=== PATIENT | male | born 1945 | race Caucasian/White ===

== ENCOUNTER 2017-03-30 19:39 | Inpatient (IN) ==
[2017-03-30] MEDS ORDERED: SODIUM CHLORIDE 0.9% 500 ML IV STA (20:40)
[2017-03-30] MEDS ORDERED: PIPERACILLIN/TAZOBACTAM 3,375 MG in SODIUM CHLORIDE 0.9% 100 ML IV STA (20:40)
[2017-03-30] MEDS ORDERED: ALBUTEROL/IPRATROPIUM 3 ML NEB RESP TX STA (20:40)
--- NOTE | 2017-03-30 20:44 | Emergency Department Note ---
Noemy Sauceda Rolonda, am scribing for, and in the presence of, Kendrick Freeman MD 20:43. Pete Sauceda Charles R, MD, personally performed the services described in this documentation, ascribed by Magui Salguero in my presence, and it is both accurate and complete . Arrival - Arrival Chief Complaint: Fever Stated Complaint: throwing up,fever,heart feeling funny ED Nursing Triage Note: C/O N/V/D/generalized abd pain/generalized weakness. Onset unknown- pt cannot narrow down a timeline of onset. Mode of Arrival: Wheelchair Limitations: No Limitations Source: Patient, Old Records Reviewed, RN Notes Reviewed Time Seen by Provider: 03/30/17 19:56 - History of Present Illness HPI Narrative: Pt is a 71 y/o ill-appearing male who presents to the ED with c/o fever with an onset of weeks. Pt has a PMHx of HTN and CVA. Pt states that he has been having fever for weeks which has progressively worsened. He states that he has been having frequency urination every 0030 minutes. He confirms associated sxs of N/V / as well. Pt states that he also has numbness in his feet and tingling in his collar bone. He is f/u by Dr. Aldrich. No other complaint/pain in ED. Onset (ago): week(s) Consistency: constant Severity: moderate, severe Severity scale (1-10): 5 Allergies/Adverse Reactions: Allergies Allergy/AdvReac Type Severity Reaction Status Date / Time No Known Allergies Allergy Verified 03/30/17 19:41 Home Medications: Home Medications Medication Instructions Recorded Confirmed Type Unable To Obtain [Unable to Obtain] 03/30/17 03/30/17 History Review of System - Review of System 12 point system: reviewed and no additional remarkable complaints except as stated - Review of System Constitutional: Present: fever, weakness Eyes: Absent: discharge Head/Ears/Nose/Throat: Absent: earache Respiratory: Absent: cough Cardiovascular: Absent: chest pain Gastrointestinal: Present: nausea, vomiting Genitourinary male: Present: frequency Musculoskeletal: Absent: arm pain, back pain Skin: Absent: rash Neurological: Present: numbness (in feet and colar bone) Psychiatric: Absent: anxiety Endocrine: Absent: cold intolerance Hematological/Lymphatic: Absent: easy bleeding Allergic/Immunologic: Absent: facial swelling Medical,Surgical,& Family Hx - Medical History Cardio: History of: Hypertension Endocrine: History of: Dyslipidemia - Social History Smoking Status: Never smoker Frequency of Alcohol Use: None Type of Drug Use: None Exam Vital Signs: Vital Signs Temperature 102 F H 03/30/17 19:41 Pulse Rate 98 H 03/30/17 21:08 Respiratory Rate 20 03/30/17 21:08 Blood Pressure 143/101 03/30/17 19:41 O2 Sat by Pulse Oximetry 99 03/30/17 21:08 - General General appearance: alert, in no apparent distress, other (ill-appearing) - Head Head exam: Present: atraumatic, normocephalic - Eye Eye exam: Present: PERRL, EOMI - ENT ENT exam: Present: mucous membranes moist. Absent: mucous membranes dry - Neck Neck exam: Present: full ROM. Absent: tenderness - Chest Chest inspection: Present: symmetric chest wall rise. Absent: tenderness - Respiratory Respiratory exam: Present: rales, rhonchi - Cardiovascular Cardiovascular exam: Present: normal rhythm, tachycardia - Abdominal Exam Abdominal exam: Present: soft, normal bowel sounds, other (suprapubic fullness) - Extremities Exam Extremities exam: Present: full ROM. Absent: tenderness - Back Exam Back exam: Present: full ROM. Absent: tenderness - Neurological Exam Neurological exam: Present: alert, oriented X3, CN II-XII intact - Psychiatric Psychiatric exam: Present: normal affect, normal mood - Skin Skin exam: Present: warm, dry, intact, normal color. Absent: rash Course - Consultations Consultation #1: Hospitalist will admit patient Time: 21:57 Results - Labs CBC & BMP: 03/30/17 20:53 03/30/17 20:53 Lab Results: I have reviewed the patients labs Labs: Laboratory Tests 03/30/17 20:53 WBC 25.1 H RBC 5.04 Hgb 15.9 Hct 46.1 Neut % (Auto) 81.4 H Lymph % (Auto) 10.3 L Neut # (Auto) 20.4 H Bledsoe # (Auto) 1.9 H Microbiology 03/30/17 20:53 Throat Group A Streptococcus Rapid Screen - Final Negative for Grp A Strep Ag 03/30/17 20:53 Nasal Aspirate Influenza Types A,B Antigen (SALOME) - Final Negative for Influenza A Ag Negative for Influenza B Ag Laboratory Tests 03/30/17 03/30/17 20:53 21:08 Sodium 135 L Potassium 3.9 Chloride 101 Carbon Dioxide 25 BUN 16 GFR Calculation 122 Glucose 135 H Calculated Osmolality 272.1 L Calcium 8.4 L AST 13 C-Reactive Protein 9.88 H Albumin 3.3 L Globulin 4.1 H Albumin/Globulin Ratio 0.8 L Amylase 16 L Urine pH 5.0 Ur Specific Magazine 1.028 Urine Protein 100 Urine Glucose (UA) Negative Urine Ketones Negative Urine Blood Moderate Urine Nitrate Negative Urine Bilirubin Negative Urine Urobilinogen < 2.0 H Urine Leukocytes Large H Urine RBC 61 Urine WBC 391 Urine WBC Clumps Many Urine Bacteria Few Urine Mucus Many Ur Culture Indicated? Results to follow Critical Care Time Critical Care Time: Yes Total Critical Care Time: 60 Disposition Clinical Impression: Sepsis, UTI (urinary tract infection), Leukocytosis, Nausea vomiting and diarrhea, Generalized weakness, Near syncope Case discussed with: patient, patient's family Disposition: Still a Patient Condition: Guarded Time of Disposition: 21:57
[2017-03-30] MEDS ORDERED: PIPERACILLIN/TAZOBACTAM 3,375 MG VIAL IV ONE (20:49)
[2017-03-30 21:17] LABS: Basophils # 0.1 10*3/uL (0.0-0.2); Basophils % 0.3 % (0.0-0.8); Eosinophils % 0.1 % (0.00-10.9); Hematocrit 46.1 VOL% (42.0-52.0); Hemoglobin 15.9 GM/DL (14.0-18.0); Immature Granulocytes % 0.5 %; Immature Granulocytes Absolute 0.12 #; Lymphocytes # 2.6 10*3/uL (1.4-4.0); Lymphocytes % 10.3 % (21.2-54.2); Mean Corpuscular HGB Conc 34.5 GM/DL (32-36); Mean Corpuscular Hemoglobin 32 PG (27-34); Mean Corpuscular Volume 91.5 FL (87-102); Mean Platelet Volume 11.4 FL (9.6-12.0); Monocytes # 1.9 10*3/uL (0.11-0.8); Monocytes % 7.4 % (1.7-12.7); Neutrophils # 20.4 10*3/uL (1.4-7.4); Neutrophils % 81.4 % (38.7-73.9); Platelet Count 217 T/CUMM (130-400); Red Blood Count 5.04 MC/CUMM (3.8-5.5); Red Cell Distribution Width 12.2 % (9.3-17.3); White Blood Count 25.1 T/CUMM (4-12)
[2017-03-30 21:43] LABS: Apearance,Urine CLOUDY (Clear); Bacteria,Urine Few /HPF (Few); Bilirubin,Urine Negative (Negative); Blood, Urine Moderate mg/dL (Negative); Glucose,Urine (UA) Negative (Negative); Ketones,Urine Negative (Negative); Mucus,Urine Many /LPF (Occasional); Nitrite,Urine Negative (Negative); Protein,Urine 100 MG/DL; RBC,Urine 61 /HPF (0-4); Urine Color Amber (Yellow); Urine Specific Gravity 1.028 (1.001-1.035); Urine Urobilinogen < 2.0 EU/DL (0.2-1.0); WBC,Urine 391 /HPF (0-6)
[2017-03-30 21:48] LABS: Lactic Acid 1.6 MMOL/L (0.4-2.0)
[2017-03-30 21:49] LABS: Alanine Aminotransferase 19 U/L (16-61); Albumin 3.3 G/DL (3.4-5.0); Alkaline Phosphatase 69 U/L (45-117); Amylase 16 U/L (25-115); Aspartate Amino Transferase 13 U/L (0-37); Blood Urea Nitrogen 16 MG/DL (7-18); Calcium 8.4 MG/DL (8.5-10.1); Glucose 135 MG/DL (74-106); Osmolality,Calculated 272.1 MOS/KG (273-304); Potassium 3.9 MMOL/L (3.5-5.1); Sodium 135 MMOL/L (136-145); Total Protein 7.4 G/DL (6.4-8.3); Troponin I Only < 0.015 NG/ML (0.00-0.045)
[2017-03-30] MEDS ORDERED: ONDANSETRON 4 MG/2 ML VIAL IV STA (21:55)
[2017-03-30] MEDS ORDERED: ONDANSETRON 4 MG/2 ML VIAL ONE (21:58)
[2017-03-30] MEDS ORDERED: LEVOFLOXACIN INJ 750 MG in PREMIX 1 EACH IV STA (21:58)
--- NOTE | 2017-03-30 22:49 | Hospitalist History & Physical ---
Assessment and Plan (1) Urinary retention Status: Acute Current Visit: Yes (2) Sepsis Status: Acute Current Visit: Yes (3) UTI (urinary tract infection) Status: Acute Current Visit: Yes (4) Leukocytosis Status: Acute Current Visit: Yes (5) Nausea vomiting and diarrhea Status: Acute Assessment and plan: Our plan for this patient will be admitting him to our service. Start him on IV antibiotics. Will follow sepsis protocol and use Zosyn. We will culture his urine and blood. Will continue home meds once they are confirmed. Will get EKG in the morning. He is reports a history of A. fib. Will do a bladder scan on him for for post void residual and if greater than 100 and out cath as needed. Go ahead and start him on Flomax Current Visit: Yes History of Present Illness Chief complaint: Fever feeling poorly History of present illness: Mr. Ridley is a 71 year old male with multiple medical problems including stroke , TIA, and A. fib who was in his normal state of health until the past 2-3 weeks. During this time he said he just felt awful. He is progressively gotten weaker during this timeframe. He felt like tonight he was going to so he came to the hospital for further evaluation. Patient was found to have a urinary tract infection and met sepsis protocol. He reports to me that for the past 2-3 weeks he has had a problem with urination. I was consulted for admission. Home Medications Medication Instructions Recorded Confirmed Type Unable To Obtain [Unable to Obtain] 03/30/17 03/30/17 History Allergies Allergy/AdvReac Type Severity Reaction Status Date / Time No Known Allergies Allergy Verified 03/30/17 19:41 Medical,Surgical,& Family Hx - Medical History Cardio: History of: Cardiac Dysrhythmia, Hypertension Endocrine: History of: Dyslipidemia - Surgical History HEENT Surgeries: Surgical HX of: Tonsilectomy & Adenoidectomy Abdominal Surgeries: Surgical HX of: Hernia Repair - Family History Family History: Reports;: Family Cancer, Family Diabetes - Social History Smoking Status: Never smoker Frequency of Alcohol Use: None Type of Drug Use: None 12 point system: reviewed and no additional remarkable complaints except as stated Exam - Constitutional Vitals: Period Temp Pulse Resp BP Sys/Antony Pulse Ox Last 24 Hr 102 F 95-111 20-20 143/101 96-99 - General General appearance: alert, in no apparent distress - Head Head exam: Present: atraumatic, normocephalic - Eye Eye exam: Present: PERRL, EOMI - ENT ENT exam: Present: mucous membranes moist. - Neck Neck exam: Present: full ROM. - Chest Chest inspection: Present: symmetric chest wall rise. - Respiratory Respiratory exam: Present: Coarse breath sounds bilaterally - Cardiovascular Cardiovascular exam: Present: normal rhythm, tachycardia - Abdominal Exam Abdominal exam: Present: soft, normal bowel sounds, fullness noted in the suprapubic area - Extremities Exam Extremities exam: Present: full ROM. Absent: tenderness - Back Exam Back exam: Present: full ROM. Absent: tenderness - Neurological Exam Neurological exam: Present: alert, oriented X3, CN II-XII intact - Psychiatric Psychiatric exam: Present: normal affect, normal mood - Skin Skin exam: Present: warm, dry, intact, normal color. Absent: rash Results - Labs CBC & BMP: 03/30/17 20:53 03/30/17 20:53
[2017-03-30] MEDS ORDERED: LEVOFLOXACIN INJ 150 ML IV ONE (22:58)
[2017-03-30 23:34] LABS: Band Neutrophils 3 % (0-10); Lymphocytes 12 % (20-55); Segmented Neutrophils 78 % (50-85)
[2017-03-30 23:35] LABS: Platelet Estimate Normal; Total Cells Counted 100
[2017-03-31] MEDS: ONDANSETRON 4 MG/2 ML VIAL IV PRN ×2 (01:20→09:20)
[2017-03-31] MEDS: TAMSULOSIN 0.4 MG CAPSULE PO SCH ×2 (01:20→21:38)
[2017-03-31] MEDS: ACETAMINOPHEN 325 MG TABLET PO PRN ×2 (03:06→14:30)
[2017-03-31] MEDS: PIPERACILLIN/TAZOBACTAM 3,375 MG in SODIUM CHLORIDE 0.9% 100 ML IV SCH ×3 (05:10→22:40)
[2017-03-31 06:16] LABS: Basophils # 0.1 10*3/uL (0.0-0.2); Basophils % 0.3 % (0.0-0.8); Eosinophils % 0.1 % (0.00-10.9); Hematocrit 44.8 VOL% (42.0-52.0); Hemoglobin 14.9 GM/DL (14.0-18.0); Immature Granulocytes % 0.5 %; Immature Granulocytes Absolute 0.12 #; Lymphocytes # 3.1 10*3/uL (1.4-4.0); Lymphocytes % 14.4 % (21.2-54.2); Mean Corpuscular HGB Conc 33.3 GM/DL (32-36); Mean Corpuscular Hemoglobin 31 PG (27-34); Mean Corpuscular Volume 94.1 FL (87-102); Mean Platelet Volume 12.3 FL (9.6-12.0); Monocytes # 1.3 10*3/uL (0.11-0.8); Monocytes % 5.9 % (1.7-12.7); Neutrophils # 17.2 10*3/uL (1.4-7.4); Neutrophils % 78.8 % (38.7-73.9); Platelet Count 187 T/CUMM (130-400); Red Blood Count 4.76 MC/CUMM (3.8-5.5); Red Cell Distribution Width 12.4 % (9.3-17.3); White Blood Count 21.9 T/CUMM (4-12)
[2017-03-31 06:39] LABS: Band Neutrophils 2 % (0-10); Lymphocytes 12 % (20-55); Segmented Neutrophils 78 % (50-85); Total Cells Counted 100
[2017-03-31 06:40] LABS: Giant Platelets Few; Hypochromasia Slight; Platelet Estimate Normal
--- NOTE | 2017-03-31 06:40 | XRay Report ---
XR chest 2V Indication: Shortness of breath, fever Comparison: None available Findings: The heart and mediastinum are normal in size and configuration. The pulmonary vascularity is normal in caliber. Lung volumes are increased with prominent bronchial markings. No lung infiltrates, effusions, pneumothorax or other abnormality is demonstrated. Impression: Chronic lung changes. No acute process. PROCEDURE INTERPRETED AT [facility] DEPARTMENT OF RADIOLOGY Final Report Signed by: Dr. Rey De Luna
--- NOTE | 2017-03-31 06:41 | XRay Report ---
XR abdomen 2V Indication: Nausea vomiting and diarrhea Comparison: None available Findings: No free fluid or free air seen. The bowel gas pattern appears within normal limits. No abnormal calcifications are present. No other abnormality is identified. Impression: No evidence of abnormality demonstrated PROCEDURE INTERPRETED AT [facility] DEPARTMENT OF RADIOLOGY Final Report Signed by: Dr. Rey De Luna
[2017-03-31 07:02] LABS: Albumin 3.2 G/DL (3.4-5.0); Bilirubin,Total 1.3 MG/DL (0.2-1.0); Calcium 8.3 MG/DL (8.5-10.1); Osmolality,Calculated 275.8 MOS/KG (273-304); Total Protein 6.5 G/DL (6.4-8.3)
--- NOTE | 2017-03-31 07:31 | Order Completion Report ---
See report scanned to EMR
[2017-03-31] MEDS ORDERED: ENOXAPARIN 40 MG/0.4 ML SYRINGE SUBCUT SCH (09:00)
--- NOTE | 2017-03-31 09:09 | Hospitalist Progress Note ---
Assessment and Plan (1) History of atrial fibrillation Status: Acute Assessment and plan: He is presently in normal sinus rhythm. I will start him on anticoagulation with rivaroxaban. Current Visit: Yes (2) History of CVA (cerebrovascular accident) Status: Acute Current Visit: Yes (3) Sepsis Status: Acute Assessment and plan: He appears much improved this morning. He is presently being treated with intravenous Zosyn. Current Visit: Yes Qualifiers: Sepsis type: sepsis due to unspecified organism Qualified Code(s): A41.9 - Sepsis, unspecified organism (4) UTI (urinary tract infection) Status: Acute Assessment and plan: See above. Current Visit: Yes Hospitalist: Subjective Interval history: Patient feels much better today. He is not experiencing any nausea or vomiting. He was begun last night on intravenous Zosyn for urinary tract infection and sepsis. He notes that he has a previous history of multiple strokes and TIAs. He self discontinued warfarin and apixaban which had previously been prescribed. He requests that a repeat CT scan of his head and carotid Doppler examination be performed. I will restart him on anticoagulation with rivaroxaban. Exam - Constitutional Vitals: Period Temp Pulse Resp BP Sys/Antony Pulse Ox Last 24 Hr 98.0 F-102 F 80-121 16-20 102-143/64-101 91-100 General appearance: no acute distress - Head Head exam: Present: normal inspection - Neck Neck exam: Present: normal inspection - Respiratory Respiratory exam: Present: clear to auscultation bilaterally - Cardiovascular Cardiovascular exam: Present: regular rate and rhythm - GI/Abdominal GI/Abdominal exam: Present: normal bowel sounds, soft, other (Nontender with no palpable masses or hepatosplenomegaly.) - Extremities Exam Extremities exam: Present: normal inspection - Neurological Exam Neurological exam: Present: alert, oriented X3 - Skin Skin exam: Present: normal color, warm, intact Results - Labs CBC & BMP: 03/31/17 05:25 03/31/17 05:25
[2017-03-31] MEDS: PANTOPRAZOLE 40 MG TABLET PO SCH (09:55)
--- NOTE | 2017-03-31 10:51 | CT Report ---
CT brain Indication: Transient ischemic attack, sepsis Comparison: None available Technique: Axial CT imaging of the brain is performed without contrast with 3 mm increments. Findings: No evidence of hemorrhage, mass mass effect midline shift or acute infarct seen. The brain parenchyma attenuation and differentiation appears within normal limits. The ventricles and cisterns are normal in caliber. No cranial or skull base abnormality is identified. Impression: No evidence of abnormality demonstrated. This CT exam was performed using one or more the following dose reduction techniques: Automated exposure control, adjustment of the MA and/or KV according to patient size, or use of iterative reconstruction technique. PROCEDURE INTERPRETED AT [facility] DEPARTMENT OF RADIOLOGY Final Report Signed by: Dr. Rey De Luna
--- NOTE | 2017-03-31 14:23 | Ultrasound Report ---
Exam:US carotid duplex BI Date:03/31/2017 9:03 AM Indication: TIA Color Doppler, wave form analysis, and grayscale analysis of the cervical carotid arteries was performed. There is minimal smooth plaque in the distal right common carotid artery. Waveform analysis shows proper directional flow of the cervical carotid arteries. There is antegrade flow in either vertebral artery. The distal right ICA measures 5.5 mm diameter; the left measures 5.2 mm diameter. Peak systolic velocities are as follows: Right CCA 112 cm/s Right ICA 108 cm/s Right ECA 85 cm/s Right vertebral 55 cm/s Right IC/CC ratio 1.0 Left CCA 122 cm/s Left ICA 80 cm/s Left ECA 105 cm/s Left vertebral 36 cm/s Left IC/CC ratio 0.7 There is 0-49% diameter reduction narrowing of either internal carotid artery using indirect NASCET criteria. Ultrasound images were captured and archived. Impression: No hemodynamically significant internal carotid artery stenosis PROCEDURE INTERPRETED AT [facility] DEPARTMENT OF RADIOLOGY Final Report Signed by: Dr. Carolina Peralta
[2017-03-31] MEDS: ASPIRIN CHEW 81 MG TABLET PO SCH ×2 (15:10→21:38)
[2017-03-31] MEDS: amLODIPine 5 MG TABLET PO SCH (15:10)
[2017-03-31] MEDS: RIVAROXABAN 20 MG TABLET PO SCH (16:21)
[2017-03-31] MEDS ORDERED: KETOROLAC 30 MG/1 ML VIAL IV ONE (20:26)
[2017-03-31] MEDS: TEMAZEPAM 15 MG CAPSULE PO PRN (21:38)
[2017-04-01 03:32] LABS: Basophils # 0.1 10*3/uL (0.0-0.2); Basophils % 0.3 % (0.0-0.8); Eosinophils # 0.2 10*3/uL (0.0-0.87); Eosinophils % 1.4 % (0.00-10.9); Hematocrit 40.8 VOL% (42.0-52.0); Hemoglobin 13.8 GM/DL (14.0-18.0); Immature Granulocytes % 0.7 %; Immature Granulocytes Absolute 0.12 #; Lymphocytes # 3.1 10*3/uL (1.4-4.0); Lymphocytes % 18.3 % (21.2-54.2); Mean Corpuscular HGB Conc 33.8 GM/DL (32-36); Mean Corpuscular Hemoglobin 32 PG (27-34); Mean Platelet Volume 12.3 FL (9.6-12.0); Monocytes # 1.3 10*3/uL (0.11-0.8); Monocytes % 7.9 % (1.7-12.7); Neutrophils % 71.4 % (38.7-73.9); Platelet Count 161 T/CUMM (130-400); Red Blood Count 4.34 MC/CUMM (3.8-5.5); Red Cell Distribution Width 12.4 % (9.3-17.3); White Blood Count 16.8 T/CUMM (4-12)
[2017-04-01 04:20] LABS: Calcium 7.9 MG/DL (8.5-10.1); Osmolality,Calculated 280.5 MOS/KG (273-304); Potassium 3.6 MMOL/L (3.5-5.1)
[2017-04-01] MEDS: PIPERACILLIN/TAZOBACTAM 3,375 MG in SODIUM CHLORIDE 0.9% 100 ML IV SCH ×3 (05:42→22:41)
[2017-04-01] MEDS: ASPIRIN CHEW 81 MG TABLET PO SCH ×2 (08:53→11:00)
[2017-04-01] MEDS: PANTOPRAZOLE 40 MG TABLET PO SCH (08:53)
[2017-04-01] MEDS: amLODIPine 5 MG TABLET PO SCH (08:53)
--- NOTE | 2017-04-01 09:12 | Hospitalist Progress Note ---
Assessment and Plan (1) History of atrial fibrillation Status: Acute Assessment and plan: He is presently in normal sinus rhythm. He was begun yesterday on rivaroxaban. Current Visit: Yes (2) History of CVA (cerebrovascular accident) Status: Acute Current Visit: Yes (3) Sepsis Status: Acute Assessment and plan: He appears much improved this morning. He is presently being treated with intravenous Zosyn. Today is day 2 of intravenous antibiotics. Current Visit: Yes Qualifiers: Sepsis type: sepsis due to unspecified organism Qualified Code(s): A41.9 - Sepsis, unspecified organism (4) UTI (urinary tract infection) Status: Acute Assessment and plan: See above. He is asymptomatic with no dysuria or other symptoms. Current Visit: Yes Qualifiers: Urinary tract infection type: site unspecified Hematuria presence: without hematuria Qualified Code(s): N39.0 - Urinary tract infection, site not specified Hospitalist: Subjective Interval history: Patient feels much better today. Today is day 2 of intravenous Zosyn. I discussed with him that if he is doing well tomorrow, it might be possible to allow him to go home on oral antibiotics. Exam - Constitutional Vitals: Period Temp Pulse Resp BP Sys/Antony Pulse Ox Last 24 Hr 98 F-99.4 F 65-99 16-20 99-116/58-70 95-97 General appearance: no acute distress - Head Head exam: Present: normal inspection - Neck Neck exam: Present: normal inspection - Respiratory Respiratory exam: Present: clear to auscultation bilaterally - Cardiovascular Cardiovascular exam: Present: regular rate and rhythm - GI/Abdominal GI/Abdominal exam: Present: normal bowel sounds, soft, other (Nontender with no palpable masses or hepatosplenomegaly.) - Extremities Exam Extremities exam: Present: normal inspection - Skin Skin exam: Present: normal color, warm, intact Results - Labs CBC & BMP: 04/01/17 02:32 04/01/17 02:32 Specialty Discharge - Follow Up or Referrals Follow up with: Rupal Ag MD [Physician] - (follow up on discharge )
[2017-04-01] MEDS: RIVAROXABAN 20 MG TABLET PO SCH (16:48)
[2017-04-01] MEDS ORDERED: MAGNESIUM HYDROXIDE SUSP 30 ML UDCUP PO PRN (17:28)
[2017-04-01] MEDS ORDERED: MAGNESIUM HYDROXIDE SUSP 30 ML UDCUP PO ONE (17:28)
[2017-04-01] MEDS: TAMSULOSIN 0.4 MG CAPSULE PO SCH (21:42)
[2017-04-01] MEDS: TEMAZEPAM 15 MG CAPSULE PO PRN (21:42)
[2017-04-02] MEDS: PIPERACILLIN/TAZOBACTAM 3,375 MG in SODIUM CHLORIDE 0.9% 100 ML IV SCH (06:04)
--- NOTE | 2017-04-02 08:00 | Discharge Summary ---
Hospital Course - Hospital Course Hospital Course: Mr. Ridley is a 71 year old male with multiple medical problems including stroke , TIA, and A. fib who was in his normal state of health until the past 2-3 weeks. During this time he said he just felt awful. He is progressively gotten weaker during this timeframe. He felt like tonight he was going to so he came to the hospital for further evaluation. Patient was found to have a urinary tract infection and met sepsis protocol. He reports to me that for the past 2-3 weeks he has had a problem with urination. Mr. Ridley was treated with intravenous Zosyn. He did well thereafter by the day of discharge was comfortable with no complaints. Laboratory testing at the time of discharge demonstrated the following: Hematocrit 40.8, hemoglobin 13.8, WBC 16,800 (decreased from 25,100 on admission), BUN 22, creatinine 1.0, and potassium 3.6. Diagnosis - Discharge Diagnosis (1) History of atrial fibrillation Status: Chronic (2) History of CVA (cerebrovascular accident) Status: Chronic (3) Sepsis Status: Acute (4) UTI (urinary tract infection) Status: Acute Specialty Discharge - Follow Up or Referrals Follow up with: Rupal Ag MD [Physician] - (follow up on discharge ) Discharge Plan - Discharge Data Disposition: Disch To Home/Self Care Condition at Discharge: Stable Discharge Diet: advance to your usual diet Activity: resume usual activities as tolerated - Discharge Medications New Tamsulosin [Flomax] 0.4 mg PO BEDTIME #30 capsule cephALEXin [Keflex] 500 mg PO Q12HR #8 capsule Continue amLODIPine [Norvasc] 5 mg PO DAILY Aspirin 81 mg PO BID - Follow Up or Referral Follow Up: Rupal Ag MD [Physician] - (follow up on discharge ) - Forms/Instructions Exam - Constitutional Vitals: Period Temp Pulse Resp BP Sys/Antony Pulse Ox Last 24 Hr 97 F-98.4 F 84-98 16-22 92-118/57-79 92-95 Discharge Results Procedures and tests throughout hospitalization: Pending Orders 03/30/17 Urine Culture Routine 03/30/17 20:53 Blood Culture Stat Labs on day of discharge: Preliminary micro results at discharge 03/30/17 Unknown Urine Culture - Preliminary Urine,Catheterized Gram Negative Rods 03/30/17 20:53 Blood Culture - Preliminary Blood No growth at 1 day 03/30/17 20:53 Blood Culture - Preliminary Blood No growth at 1 day DS: Provider Date of admission: 03/30/17 22:38 Primary care physician: Jad Reyes MD Attending physician on admission: Gareth Sapp MD Discharging clinician: Nathan Childers
[2017-04-02 08:02] VITALS: BP 96/61
[2017-04-02] MEDS: ASPIRIN CHEW 81 MG TABLET PO SCH (09:27)
[2017-04-02] MEDS: PANTOPRAZOLE 40 MG TABLET PO SCH (09:27)
== END 2017-04-02 11:40 | disposition home or self-care (01) | DRG 872 ==
LOC: N.ED 19:39 → SUATTDRO 22:38 → N.EDINP 22:38 → N.5E 23:09
PROVIDERS: ADMIT Internal Medicine

== ENCOUNTER 2020-04-08 11:40 | Inpatient (IN) ==
[2020-04-08] MEDS ORDERED: DEXAMETHASONE 4 MG/1 ML VIAL IV STA (12:01)
[2020-04-08] MEDS ORDERED: ALBUTEROL 2.5 MG/3 ML NEB RESP TX STA (12:02)
[2020-04-08] MEDS ORDERED: LORazepam 2 MG/1 ML VIAL IV STA (12:08)
[2020-04-08] MEDS ORDERED: SODIUM CHLORIDE 0.9% 1,000 ML IV STA (12:11)
[2020-04-08 12:12] LABS: Basophils % 0.3 % (0.0-0.8); Eosinophils % 0.1 % (0.00-10.9); Hematocrit 49.7 VOL% (42.0-52.0); Hemoglobin 16.9 GM/DL (14.0-18.0); Immature Granulocytes % 0.6 %; Immature Granulocytes Absolute 0.05 #; Lymphocytes % 12.4 % (21.2-54.2); Mean Corpuscular Volume 92.7 FL (87-102); Monocytes % 6.4 % (1.7-12.7); Neutrophils % 80.2 % (38.7-73.9); Platelet Count 206 T/CUMM (130-400); Red Blood Count 5.36 MC/CUMM (3.8-5.5); Red Cell Distribution Width 12.2 % (9.3-17.3); White Blood Count 7.9 T/CUMM (4-12)
[2020-04-08 12:40] LABS: Band Neutrophils 3 % (0-10); Eosinophils 1 % (0-10); Lymphocytes 13 % (20-55); Nucleated Red Blood Cells 1 (0-5); Platelet Estimate Normal; Segmented Neutrophils 78 % (50-85); Total Cells Counted 100
[2020-04-08 12:41] LABS: Anisocytosis 1+; Smudge Cells Few
[2020-04-08 13:13] LABS: Albumin 3.2 G/DL (3.4-5.0); Bilirubin,Total 0.5 MG/DL (0.2-1.0); Calcium 8.8 MG/DL (8.5-10.1); Osmolality,Calculated 279.7 MOS/KG (273-304); Total Protein 7.6 G/DL (6.4-8.3)
[2020-04-08 13:26] LABS: Ferritin 1201.2 ng/ml (26-388)
[2020-04-08] MEDS ORDERED: PIPERACILLIN/TAZOBACTAM 3,375 MG in SODIUM CHLORIDE 0.9% 100 ML IV STA (14:09)
[2020-04-08] MEDS ORDERED: ONDANSETRON 4 MG/2 ML VIAL IV PRN (15:09)
[2020-04-08] MEDS ORDERED: DEXTROSE 50% 25 GM/50 ML VIAL IV PRN (15:09)
[2020-04-08] MEDS ORDERED: ACETAMINOPHEN 325 MG TABLET PO PRN (15:09)
[2020-04-08] MEDS ORDERED: GLUCAGON 1 MG VIAL IM PRN (15:09)
[2020-04-08] MEDS ORDERED: INFLUENZA VIRUS VACCINE 0.5 ML SYRINGE IM ONE (17:37)
[2020-04-08] MEDS ORDERED: ZINC SULFATE 220 MG CAPSULE PO SCH (21:00)
[2020-04-08] MEDS: ASPIRIN CHEW 81 MG TABLET PO SCH (21:05)
[2020-04-08] MEDS: LATANOPROST 0.005% OPH SOLN 2.5 ML BOTTLE BOTH EYES SCH (21:05)
[2020-04-08] MEDS: TAMSULOSIN 0.4 MG CAPSULE PO SCH (21:05)
[2020-04-08] MEDS: ALBUTEROL INHALER 18 GM INH SCH (21:05)
[2020-04-08] MEDS: cefTRIAXone 1,000 MG in SYRINGE 1 EACH IV SCH (21:06)
[2020-04-08] MEDS: ENOXAPARIN 100 MG/ML SYRINGE SUBCUT SCH (21:06)
[2020-04-09] MEDS: ALBUTEROL INHALER 18 GM INH SCH ×4 (00:15→21:44)
[2020-04-09 03:44] LABS: Basophils % 0.2 % (0.0-0.8); Hematocrit 46.9 VOL% (42.0-52.0); Hemoglobin 15.7 GM/DL (14.0-18.0); Immature Granulocytes % 0.6 %; Immature Granulocytes Absolute 0.03 #; Lymphocytes # 1.2 10*3/uL (1.4-4.0); Lymphocytes % 24.5 % (21.2-54.2); Mean Corpuscular HGB Conc 33.5 GM/DL (32-36); Mean Corpuscular Volume 93.8 FL (87-102); Mean Platelet Volume 11.7 FL (9.6-12.0); Monocytes % 7.5 % (1.7-12.7); Neutrophils % 67.2 % (38.7-73.9); Platelet Count 214 T/CUMM (130-400); Red Cell Distribution Width 11.6 % (9.3-17.3); White Blood Count 4.8 T/CUMM (4-12)
[2020-04-09 04:09] LABS: Calcium 8.7 MG/DL (8.5-10.1); Osmolality,Calculated 281.7 MOS/KG (273-304)
[2020-04-09 04:15] LABS: Burr Cells Slight; Lymphocytes 16 % (20-55); Ovalocytes Slight; Platelet Estimate Adequate; Segmented Neutrophils 79 % (50-85); Total Cells Counted 100
[2020-04-09] MEDS: DEXAMETHASONE 10 MG/1 ML VIAL IV SCH (09:09)
[2020-04-09] MEDS: amLODIPine 5 MG TABLET PO SCH (09:09)
[2020-04-09] MEDS: ASPIRIN CHEW 81 MG TABLET PO SCH ×2 (09:09→21:45)
[2020-04-09] MEDS ORDERED: MELATONIN 3 MG TABLET PO PRN (15:25)
[2020-04-09] MEDS: cefTRIAXone 1,000 MG in SYRINGE 1 EACH IV SCH (21:45)
[2020-04-09] MEDS: TAMSULOSIN 0.4 MG CAPSULE PO SCH (21:45)
[2020-04-09] MEDS: ENOXAPARIN 100 MG/ML SYRINGE SUBCUT SCH (21:46)
[2020-04-09] MEDS: LATANOPROST 0.005% OPH SOLN 2.5 ML BOTTLE BOTH EYES SCH (21:46)
[2020-04-10] MEDS: ALBUTEROL INHALER 18 GM INH SCH ×3 (02:00→13:01)
[2020-04-10 05:46] LABS: Basophils % 0.2 % (0.0-0.8); Hematocrit 43.1 VOL% (42.0-52.0); Hemoglobin 14.5 GM/DL (14.0-18.0); Immature Granulocytes % 0.3 %; Immature Granulocytes Absolute 0.03 #; Lymphocytes # 1.3 10*3/uL (1.4-4.0); Lymphocytes % 14.5 % (21.2-54.2); Mean Corpuscular HGB Conc 33.6 GM/DL (32-36); Mean Corpuscular Volume 94.3 FL (87-102); Monocytes % 7.5 % (1.7-12.7); Neutrophils % 77.5 % (38.7-73.9); Platelet Count 228 T/CUMM (130-400); Red Blood Count 4.57 MC/CUMM (3.8-5.5); Red Cell Distribution Width 11.7 % (9.3-17.3); White Blood Count 8.6 T/CUMM (4-12)
[2020-04-10 06:08] LABS: Calcium 8.8 MG/DL (8.5-10.1); Osmolality,Calculated 287.4 MOS/KG (273-304)
[2020-04-10] MEDS: DEXAMETHASONE 10 MG/1 ML VIAL IV SCH (08:50)
[2020-04-10] MEDS: amLODIPine 5 MG TABLET PO SCH (08:50)
[2020-04-10] MEDS: ASPIRIN CHEW 81 MG TABLET PO SCH (08:50)
[2020-04-10] MEDS ORDERED: SODIUM POLYSTYRENE SULFATE 15 GM/60 ML BOTTLE PO STA (10:59)
[2020-04-10 11:25] VITALS: BP 119/88
[2020-04-10] MEDS ORDERED: chlorproMAZINE INJ 25 MG in SODIUM CHLORIDE 0.9% 100 ML IV PRN (12:35)
== END 2020-04-10 13:40 | disposition home health service (06) | DRG 177 ==
LOC: N.ED 11:40 → N.EDINP 15:09 → N.2E 15:44
PROVIDERS: ADMIT Hospitalist; ATTEND Hospitalist

== ENCOUNTER 2021-06-18 11:06 | Observation (INO) ==
[2021-06-18] MEDS ORDERED: methylPREDNISolone SOD SUC 125 MG/2 ML VIAL IV STA (11:31)
[2021-06-18] MEDS ORDERED: ALBUTEROL NEB SOLN 5 MG/ML 20 ML/BOTTLE ONE (11:35)
[2021-06-18] MEDS ORDERED: ALBUTEROL NEB SOLN 5 MG/ML 20 ML/BOTTLE CONT NEB SCH (12:00)
[2021-06-18 12:45] LABS: Basophils # 0.1 10*3/uL (0.0-0.2); Basophils % 0.4 % (0.0-0.8); Eosinophils # 0.4 10*3/uL (0.0-0.87); Eosinophils % 2.9 % (0.00-10.9); Hematocrit 48.3 VOL% (42.0-52.0); Hemoglobin 15.6 GM/DL (14.0-18.0); Immature Granulocytes % 0.4 %; Immature Granulocytes Absolute 0.05 #; Lymphocytes # 4.5 10*3/uL (1.4-4.0); Lymphocytes % 33.1 % (21.2-54.2); Mean Corpuscular HGB Conc 32.3 GM/DL (32-36); Mean Corpuscular Volume 95.8 FL (87-102); Mean Platelet Volume 11.1 FL (9.6-12.0); Monocytes % 7.1 % (1.7-12.7); Neutrophils % 56.1 % (38.7-73.9); Platelet Count 212 T/CUMM (130-400); Red Blood Count 5.04 MC/CUMM (3.8-5.5); Red Cell Distribution Width 11.9 % (9.3-17.3); White Blood Count 13.6 T/CUMM (4-12)
[2021-06-18 13:04] LABS: Albumin 3.7 G/DL (3.4-5.0); Bilirubin,Total 0.5 MG/DL (0.20-1.00); Calcium 8.6 MG/DL (8.5-10.1); Osmolality,Calculated 289.8 MOS/KG (273-304); Potassium 3.9 MMOL/L (3.5-5.1); Total Protein 6.7 G/DL (6.4-8.2)
[2021-06-18] MEDS ORDERED: ALBUTEROL NEB SOLN 5 MG/ML 20 ML/BOTTLE CONT NEB STA (14:22)
[2021-06-18] MEDS ORDERED: LEVOFLOXACIN INJ 750 MG in PREMIX 1 EACH IV STA (15:30)
[2021-06-18] MEDS ORDERED: ALBUTEROL/IPRATROPIUM 3 ML NEB RESP TX PRN (16:24)
[2021-06-18] MEDS ORDERED: SIMETHICONE CHEW 125 MG TABLET PO PRN (16:24)
[2021-06-18] MEDS ORDERED: ONDANSETRON 4 MG/2 ML VIAL IV PRN (16:24)
[2021-06-18] MEDS ORDERED: DOCUSATE SODIUM 100 MG CAPSULE PO PRN (16:24)
[2021-06-18] MEDS ORDERED: DEXTROSE 50% 25 GM/50 ML VIAL IV PRN (16:24)
[2021-06-18] MEDS ORDERED: ACETAMINOPHEN 325 MG TABLET PO PRN (16:24)
[2021-06-18] MEDS ORDERED: hydrALAZINE 20 MG/1 ML VIAL IV PRN (16:24)
[2021-06-18] MEDS ORDERED: CALCIUM CARBONATE CHEW 500 MG TABLET PO PRN (16:24)
[2021-06-18] MEDS ORDERED: GLUCAGON 1 MG VIAL IM PRN ×2 (16:24)
[2021-06-18] MEDS ORDERED: DEXTROSE 50% 25 GM/50 ML SYRINGE IV PRN (16:35)
[2021-06-18] MEDS: ALBUTEROL/IPRATROPIUM 3 ML NEB RESP TX SCH (18:30)
[2021-06-18] MEDS: INSULIN LISPRO 100 UNIT/ML SUBCUT SCH ×2 (19:06→21:53)
[2021-06-18] MEDS: LEVOFLOXACIN INJ 750 MG/150 ML PREMIX IV SCH (19:06)
[2021-06-18] MEDS ORDERED: INFLUENZA VIRUS VACCINE 0.5 ML SYRINGE IM ONE (19:36)
[2021-06-18] MEDS: PANTOPRAZOLE 40 MG TABLET PO SCH (21:52)
[2021-06-18] MEDS: methylPREDNISolone SOD SUC 40 MG/1 ML VIAL IV SCH (21:53)
[2021-06-18] MEDS: BUDESONIDE/FORMOTEROL 160-4.5 INHALER 6 GM INH SCH (21:53)
[2021-06-19] MEDS: ALBUTEROL/IPRATROPIUM 3 ML NEB RESP TX SCH ×2 (00:01→07:40)
[2021-06-19] MEDS: GABAPENTIN 300 MG CAPSULE PO SCH ×3 (01:04→21:04)
[2021-06-19 05:02] LABS: Basophils % 0.2 % (0.0-0.8); Hematocrit 43.9 VOL% (42.0-52.0); Hemoglobin 13.9 GM/DL (14.0-18.0); Immature Granulocytes % 0.7 %; Immature Granulocytes Absolute 0.08 #; Lymphocytes # 0.9 10*3/uL (1.4-4.0); Lymphocytes % 7.2 % (21.2-54.2); Mean Corpuscular HGB Conc 31.7 GM/DL (32-36); Monocytes % 2.2 % (1.7-12.7); Neutrophils % 89.7 % (38.7-73.9); Platelet Count 222 T/CUMM (130-400); Red Blood Count 4.48 MC/CUMM (3.8-5.5); Red Cell Distribution Width 11.9 % (9.3-17.3); White Blood Count 12.3 T/CUMM (4-12)
[2021-06-19 05:24] LABS: Alanine Aminotransferase 22 U/L (16-61); Albumin 3.4 G/DL (3.4-5.0); Alkaline Phosphatase 61 U/L (45-117); Aspartate Amino Transferase 12 U/L (0-37); Bilirubin,Total < 0.39 MG/DL (0.20-1.00); Blood Urea Nitrogen 21 MG/DL (7-18); Calcium 8.8 MG/DL (8.5-10.1); Carbon Dioxide 25 MMOL/L (21-32); Estimated Glom Filtration Rate 89 ML/MIN; Glucose 240 MG/DL (74-106); Osmolality,Calculated 283.8 MOS/KG (273-304); Potassium 3.9 MMOL/L (3.5-5.1); Sodium 137 MMOL/L (136-145); Total Protein 6.7 G/DL (6.4-8.2)
[2021-06-19] MEDS: methylPREDNISolone SOD SUC 40 MG/1 ML VIAL IV SCH ×3 (06:13→17:10)
[2021-06-19] MEDS: INSULIN LISPRO 100 UNIT/ML SUBCUT SCH ×4 (08:05→21:07)
[2021-06-19] MEDS: PANTOPRAZOLE 40 MG TABLET PO SCH ×2 (08:18→21:04)
[2021-06-19] MEDS: BUDESONIDE/FORMOTEROL 160-4.5 INHALER 6 GM INH SCH ×2 (08:18→21:07)
[2021-06-19] MEDS: MAGNESIUM OXIDE 400 MG TABLET PO SCH (08:18)
[2021-06-19] MEDS: CYANOCOBALAMIN 500 MCG TABLET PO SCH (08:18)
[2021-06-19] MEDS: ASPIRIN CHEW 81 MG TABLET PO SCH ×2 (08:18→21:04)
[2021-06-19] MEDS: amLODIPine 5 MG TABLET PO SCH (08:18)
[2021-06-19] MEDS ORDERED: GABAPENTIN 300 MG CAPSULE PO SCH (09:00)
[2021-06-19] MEDS: [UNRECOGNIZED DRUG - OTHER] PO SCH (09:55)
[2021-06-19] MEDS: BRINZOLAMIDE 1% OPH SUSP 10 ML BOTTLE BOTH EYES SCH ×2 (11:07→21:05)
[2021-06-19] MEDS: IPRATROPIUM 500 MCG/2.5 ML NEB RESP TX SCH ×2 (14:02→21:29)
[2021-06-19] MEDS: LEVALBUTEROL 1.25 MG/3 ML NEB RESP TX SCH ×2 (14:02→21:29)
[2021-06-19] MEDS: LEVOFLOXACIN INJ 750 MG/150 ML PREMIX IV SCH (16:13)
[2021-06-19] MEDS ORDERED: ENOXAPARIN 40 MG/0.4 ML SYRINGE SUBCUT SCH (21:00)
[2021-06-20] MEDS: IPRATROPIUM 500 MCG/2.5 ML NEB RESP TX SCH ×2 (01:00→07:20)
[2021-06-20] MEDS: LEVALBUTEROL 1.25 MG/3 ML NEB RESP TX SCH ×2 (01:00→07:20)
[2021-06-20] MEDS: methylPREDNISolone SOD SUC 40 MG/1 ML VIAL IV SCH ×2 (01:11→09:32)
[2021-06-20] MEDS: MAGNESIUM OXIDE 400 MG TABLET PO SCH (08:27)
[2021-06-20] MEDS: PANTOPRAZOLE 40 MG TABLET PO SCH (08:27)
[2021-06-20] MEDS: amLODIPine 5 MG TABLET PO SCH (08:27)
[2021-06-20] MEDS: BUDESONIDE/FORMOTEROL 160-4.5 INHALER 6 GM INH SCH (08:27)
[2021-06-20] MEDS: ASPIRIN CHEW 81 MG TABLET PO SCH (08:27)
[2021-06-20] MEDS: CYANOCOBALAMIN 500 MCG TABLET PO SCH (08:27)
[2021-06-20] MEDS: GABAPENTIN 300 MG CAPSULE PO SCH (08:27)
[2021-06-20] MEDS: INSULIN LISPRO 100 UNIT/ML SUBCUT SCH ×2 (08:28→12:39)
[2021-06-20] MEDS: BRINZOLAMIDE 1% OPH SUSP 10 ML BOTTLE BOTH EYES SCH (08:29)
[2021-06-20] MEDS: [UNRECOGNIZED DRUG - OTHER] PO SCH (08:29)
[2021-06-20 12:31] VITALS: BP 129/83
== END 2021-06-20 13:09 | disposition home or self-care (01) ==
LOC: N.5E 11:06 → N.ED 11:06 → N.5E 19:12
PROVIDERS: ADMIT Internal Medicine; ATTEND Internal Medicine

== ENCOUNTER 2022-02-13 11:46 | Inpatient (IN) ==
[2022-02-13] MEDS ORDERED: NITROGLYCERIN SL 0.4 MG TABLET SL PRN (12:04)
[2022-02-13] MEDS ORDERED: HEPARIN 5,000 UNIT/1 ML VIAL IV ONE (12:04)
[2022-02-13] MEDS ORDERED: ASPIRIN 325 MG TABLET PO STA (12:04)
[2022-02-13] MEDS ORDERED: TICAGRELOR 90 MG TABLET PO STA (12:04)
[2022-02-13] MEDS ORDERED: ONDANSETRON 4 MG/2 ML VIAL IV STA ×2 (12:04→12:18)
[2022-02-13] MEDS ORDERED: NITROGLYCERIN SL 0.4 MG TABLET SL ONE (12:05)
[2022-02-13] MEDS ORDERED: ASPIRIN CHEW 81 MG TABLET PO ONE (12:05)
[2022-02-13] MEDS ORDERED: HEPARIN 5,000 UNIT/1 ML VIAL ONE (12:06)
[2022-02-13] MEDS ORDERED: TICAGRELOR 90 MG TABLET ONE (12:06)
[2022-02-13] MEDS ORDERED: methylPREDNISolone SOD SUC 125 MG/2 ML VIAL ONE (12:14)
[2022-02-13] MEDS ORDERED: methylPREDNISolone SOD SUC 125 MG/2 ML VIAL IV STA (12:16)
[2022-02-13 12:18] LABS: Basophils # 0.1 10*3/uL (0.0-0.2); Basophils % 0.5 % (0.0-0.8); Eosinophils # 0.2 10*3/uL (0.0-0.87); Eosinophils % 1.7 % (0.00-10.9); Hematocrit 51.2 VOL% (42.0-52.0); Hemoglobin 16.7 GM/DL (14.0-18.0); Immature Granulocytes % 0.3 %; Immature Granulocytes Absolute 0.04 #; Lymphocytes # 3.3 10*3/uL (1.4-4.0); Lymphocytes % 28.1 % (21.2-54.2); Mean Corpuscular HGB Conc 32.6 GM/DL (32-36); Mean Corpuscular Volume 94.5 FL (87-102); Mean Platelet Volume 11.7 FL (9.6-12.0); Monocytes # 0.8 10*3/uL (0.11-0.8); Monocytes % 6.5 % (1.7-12.7); Neutrophils % 62.9 % (38.7-73.9); Platelet Count 193 T/CUMM (130-400); Red Blood Count 5.42 MC/CUMM (3.8-5.5); Red Cell Distribution Width 12.6 % (9.3-17.3); White Blood Count 11.8 T/CUMM (4-12)
[2022-02-13] MEDS ORDERED: diphenhydrAMINE CAP 25 MG CAPSULE PO PRN (12:23)
[2022-02-13] MEDS ORDERED: BISACODYL 5 MG TABLET PO PRN (12:23)
[2022-02-13] MEDS ORDERED: ONDANSETRON 4 MG/2 ML VIAL IV PRN (12:23)
[2022-02-13] MEDS ORDERED: MORPHINE 2 MG/1 ML SYRINGE IV PRN (12:23)
[2022-02-13] MEDS ORDERED: hydrALAZINE 20 MG/1 ML VIAL IV PRN (12:23)
[2022-02-13] MEDS ORDERED: LACTULOSE 20 GM/30 ML UDCUP PO PRN (12:23)
[2022-02-13] MEDS ORDERED: ALUMINUM/MAGNES/SIMETH MAX STR 30 ML UDCUP PO PRN (12:23)
[2022-02-13] MEDS ORDERED: DIAZEPAM 5 MG TABLET PO ONE (12:23)
[2022-02-13] MEDS ORDERED: diphenhydrAMINE CAP 25 MG CAPSULE PO ONE (12:23)
[2022-02-13] MEDS ORDERED: SIMETHICONE CHEW 125 MG TABLET PO PRN (12:23)
[2022-02-13] MEDS ORDERED: CALCIUM CARBONATE CHEW 500 MG TABLET PO PRN (12:23)
[2022-02-13] MEDS ORDERED: ACETAMINOPHEN 325 MG TABLET PO PRN (12:23)
[2022-02-13] MEDS ORDERED: SODIUM CHLORIDE 0.9% 1,000 ML IV SCH (12:30)
[2022-02-13 12:31] LABS: INR 1.1; PT Patient Result 11.9 SECS (10.1-12.1); Partial Thromboplastin Time 25.8 SECS (23.7-32.9)
[2022-02-13] MEDS ORDERED: VERAPAMIL 5 MG/2 ML VIAL ONE (12:37)
[2022-02-13] MEDS ORDERED: NITROGLYCERIN DRIP 50 MG/250 ML BOTTLE IV ONE (12:37)
[2022-02-13 12:39] LABS: Calcium 9.4 MG/DL (8.5-10.1); Potassium 4.3 MMOL/L (3.5-5.1)
[2022-02-13] MEDS ORDERED: HYDROmorphone 1 MG/1 ML SYRINGE ONE (12:41)
[2022-02-13] MEDS ORDERED: MIDAZOLAM 2 MG/2 ML VIAL ONE (12:41)
[2022-02-13] MEDS ORDERED: TIROFIBAN 5,000 MCG/100 ML PREMIX IV ONE (12:52)
[2022-02-13] MEDS ORDERED: TIROFIBAN 5,000 MCG/100 ML PREMIX IV SCH (12:55)
[2022-02-13] MEDS ORDERED: HEPARIN/NACL 0.9% 2 UNITS/ML 2,000 UNIT/1,000 ML BAG IV ONE (13:30)
[2022-02-13] MEDS: BRINZOLAMIDE 1% OPH SUSP 10 ML BOTTLE BOTH EYES SCH (20:59)
[2022-02-13] MEDS: TICAGRELOR 90 MG TABLET PO SCH (20:59)
[2022-02-13] MEDS: GABAPENTIN 300 MG CAPSULE PO SCH (20:59)
[2022-02-13] MEDS: BUDESONIDE/FORMOTEROL 160-4.5 INHALER 6 GM INH SCH (20:59)
[2022-02-13] MEDS: ROSUVASTATIN 20 MG TABLET PO SCH (20:59)
[2022-02-13] MEDS: ZALEPLON 5 MG CAPSULE PO PRN (21:00)
[2022-02-14 04:03] LABS: Basophils % 0.2 % (0.0-0.8); Hematocrit 46.4 VOL% (42.0-52.0); Hemoglobin 14.7 GM/DL (14.0-18.0); Immature Granulocytes % 0.4 %; Immature Granulocytes Absolute 0.06 #; Lymphocytes # 1.7 10*3/uL (1.4-4.0); Lymphocytes % 12.4 % (21.2-54.2); Mean Corpuscular HGB Conc 31.7 GM/DL (32-36); Mean Corpuscular Volume 96.7 FL (87-102); Mean Platelet Volume 11.7 FL (9.6-12.0); Monocytes # 0.7 10*3/uL (0.11-0.8); Monocytes % 5.2 % (1.7-12.7); Neutrophils % 81.8 % (38.7-73.9); Platelet Count 188 T/CUMM (130-400); Red Cell Distribution Width 12.6 % (9.3-17.3); White Blood Count 13.8 T/CUMM (4-12)
[2022-02-14 04:47] LABS: Calcium 8.7 MG/DL (8.5-10.1); Osmolality,Calculated 278.1 MOS/KG (273-304); Risk Ratio 3.34; Thyroid Stimulating Hormone 0.782 uIU/ml (0.358-3.74); VLDL Cholesterol 14.4 MG/DL
[2022-02-14] MEDS ORDERED: PANTOPRAZOLE 40 MG TABLET PO SCH (09:00)
[2022-02-14] MEDS: TICAGRELOR 90 MG TABLET PO SCH ×2 (09:15→21:33)
[2022-02-14] MEDS: PANTOPRAZOLE 40 MG TABLET PO SCH (09:15)
[2022-02-14] MEDS: LOSARTAN 25 MG TABLET PO SCH (09:15)
[2022-02-14] MEDS: ENOXAPARIN 40 MG/0.4 ML SYRINGE SUBCUT SCH (09:15)
[2022-02-14] MEDS: ASPIRIN EC 81 MG TABLET PO SCH (09:15)
[2022-02-14] MEDS: GABAPENTIN 300 MG CAPSULE PO SCH ×2 (09:16→21:33)
[2022-02-14] MEDS: BRINZOLAMIDE 1% OPH SUSP 10 ML BOTTLE BOTH EYES SCH ×2 (09:16→21:32)
[2022-02-14] MEDS: BUDESONIDE/FORMOTEROL 160-4.5 INHALER 6 GM INH SCH ×2 (09:16→21:32)
[2022-02-14] MEDS ORDERED: IPRATROPIUM 500 MCG/2.5 ML NEB RESP TX PRN (13:50)
[2022-02-14] MEDS: ZALEPLON 5 MG CAPSULE PO PRN (21:33)
[2022-02-14] MEDS: ROSUVASTATIN 20 MG TABLET PO SCH (21:33)
[2022-02-15 05:09] LABS: Basophils # 0.1 10*3/uL (0.0-0.2); Basophils % 0.6 % (0.0-0.8); Eosinophils # 0.1 10*3/uL (0.0-0.87); Eosinophils % 1.5 % (0.00-10.9); Hemoglobin 13.4 GM/DL (14.0-18.0); Immature Granulocytes % 0.2 %; Immature Granulocytes Absolute 0.02 #; Lymphocytes % 33.4 % (21.2-54.2); Mean Corpuscular HGB Conc 31.2 GM/DL (32-36); Mean Corpuscular Volume 96.6 FL (87-102); Mean Platelet Volume 11.6 FL (9.6-12.0); Monocytes # 0.7 10*3/uL (0.11-0.8); Monocytes % 7.5 % (1.7-12.7); Neutrophils % 56.8 % (38.7-73.9); Platelet Count 162 T/CUMM (130-400); Red Blood Count 4.45 MC/CUMM (3.8-5.5); Red Cell Distribution Width 12.8 % (9.3-17.3)
[2022-02-15 05:24] LABS: Calcium 8.9 MG/DL (8.5-10.1); Osmolality,Calculated 288.8 MOS/KG (273-304); Potassium 3.6 MMOL/L (3.5-5.1)
[2022-02-15] MEDS: PANTOPRAZOLE 40 MG TABLET PO SCH (09:48)
[2022-02-15] MEDS: ASPIRIN EC 81 MG TABLET PO SCH (09:48)
[2022-02-15] MEDS: TICAGRELOR 90 MG TABLET PO SCH (09:48)
[2022-02-15] MEDS: GABAPENTIN 300 MG CAPSULE PO SCH (09:48)
[2022-02-15] MEDS: LOSARTAN 25 MG TABLET PO SCH (09:48)
[2022-02-15] MEDS: ENOXAPARIN 40 MG/0.4 ML SYRINGE SUBCUT SCH (09:49)
[2022-02-15] MEDS: BRINZOLAMIDE 1% OPH SUSP 10 ML BOTTLE BOTH EYES SCH (09:49)
[2022-02-15] MEDS: BUDESONIDE/FORMOTEROL 160-4.5 INHALER 6 GM INH SCH (09:50)
[2022-02-15 15:15] VITALS: BP 118/72
[2022-02-16] MEDS ORDERED: CLOPIDOGREL 75 MG TABLET PO SCH (09:00)
== END 2022-02-15 14:00 | disposition home or self-care (01) | DRG 247 ==
LOC: N.ED 11:46 → N.CC 12:22 → N.TELES 02-14 12:37
PROVIDERS: ADMIT Internal Medicine Cardiovascular Disease; ATTEND Internal Medicine Cardiovascular Disease

== ENCOUNTER 2022-06-16 09:29 | Observation (INO) ==
[2022-06-16 10:04] LABS: Basophils % 0.5 % (0.0-0.8); Eosinophils # 0.3 10*3/uL (0.0-0.87); Eosinophils % 4.1 % (0.00-10.9); Hemoglobin 14.9 GM/DL (14.0-18.0); Immature Granulocytes % 0.2 %; Immature Granulocytes Absolute 0.02 #; Lymphocytes # 1.9 10*3/uL (1.4-4.0); Lymphocytes % 22.4 % (21.2-54.2); Mean Corpuscular HGB Conc 31.7 GM/DL (32-36); Mean Corpuscular Volume 96.5 FL (87-102); Mean Platelet Volume 11.3 FL (9.6-12.0); Monocytes # 0.7 10*3/uL (0.11-0.8); Monocytes % 8.4 % (1.7-12.7); Neutrophils % 64.4 % (38.7-73.9); Platelet Count 204 T/CUMM (130-400); Red Blood Count 4.87 MC/CUMM (3.8-5.5); Red Cell Distribution Width 12.8 % (9.3-17.3); White Blood Count 8.3 T/CUMM (4-12)
[2022-06-16 10:11] LABS: PT Patient Result 11.4 SECS (10.1-12.1); Partial Thromboplastin Time 25.7 SECS (23.7-32.9)
[2022-06-16 10:18] LABS: Albumin 3.6 G/DL (3.4-5.0); Bilirubin,Total 0.4 MG/DL (0.20-1.00); Calcium 9.3 MG/DL (8.5-10.1); Potassium 4.1 MMOL/L (3.5-5.1); Total Protein 6.6 G/DL (6.4-8.2)
[2022-06-16] MEDS ORDERED: ENOXAPARIN 100 MG/ML SYRINGE SUBCUT STA (10:49)
[2022-06-16] MEDS ORDERED: ENOXAPARIN 100 MG/ML SYRINGE SUBCUT ONE (10:51)
[2022-06-16] MEDS ORDERED: MECLIZINE 25 MG TABLET PO STA (11:22)
[2022-06-16] MEDS ORDERED: ONDANSETRON 4 MG/2 ML VIAL IV PRN (11:23)
[2022-06-16] MEDS ORDERED: MORPHINE 2 MG/1 ML SYRINGE IV PRN (11:23)
[2022-06-16] MEDS ORDERED: MAGNESIUM SULF RIDER 2 GM/50 ML PREMIX IV ONE (11:24)
[2022-06-16] MEDS ORDERED: NITROGLYCERIN SL 0.4 MG TABLET SL PRN (14:18)
[2022-06-16] MEDS: CLOPIDOGREL 75 MG TABLET PO SCH (14:32)
[2022-06-16] MEDS ORDERED: MECLIZINE 25 MG TABLET PO PRN (16:01)
[2022-06-16] MEDS: carvediloL 3.125 MG TABLET PO SCH (16:18)
[2022-06-16] MEDS: ROSUVASTATIN 20 MG TABLET PO SCH (20:20)
[2022-06-17 04:50] LABS: Basophils % 0.5 % (0.0-0.8); Eosinophils # 0.4 10*3/uL (0.0-0.87); Eosinophils % 4.8 % (0.00-10.9); Hematocrit 45.6 VOL% (42.0-52.0); Hemoglobin 14.1 GM/DL (14.0-18.0); Immature Granulocytes % 0.2 %; Immature Granulocytes Absolute 0.02 #; Lymphocytes # 3.3 10*3/uL (1.4-4.0); Lymphocytes % 37.6 % (21.2-54.2); Mean Corpuscular HGB Conc 30.9 GM/DL (32-36); Mean Corpuscular Volume 99.3 FL (87-102); Mean Platelet Volume 11.8 FL (9.6-12.0); Monocytes # 0.8 10*3/uL (0.11-0.8); Monocytes % 9.5 % (1.7-12.7); Neutrophils % 47.4 % (38.7-73.9); Platelet Count 180 T/CUMM (130-400); Red Blood Count 4.59 MC/CUMM (3.8-5.5); Red Cell Distribution Width 12.7 % (9.3-17.3); White Blood Count 8.8 T/CUMM (4-12)
[2022-06-17 05:00] LABS: Calcium 8.4 MG/DL (8.5-10.1); Osmolality,Calculated 284.1 MOS/KG (273-304); Potassium 3.9 MMOL/L (3.5-5.1)
[2022-06-17 05:27] LABS: Risk Ratio 2.3; Thyroid Stimulating Hormone 2.03 uIU/ml (0.358-3.74); VLDL Cholesterol 15.4 MG/DL
[2022-06-17] MEDS ORDERED: CLOPIDOGREL 75 MG TABLET PO SCH (09:00)
[2022-06-17] MEDS ORDERED: amLODIPine 5 MG TABLET PO SCH (09:00)
[2022-06-17] MEDS: ASCORBIC ACID 500 MG TABLET PO SCH (09:07)
[2022-06-17] MEDS: LOSARTAN 25 MG TABLET PO SCH (09:07)
[2022-06-17] MEDS: PANTOPRAZOLE 40 MG TABLET PO SCH (09:07)
[2022-06-17] MEDS: CLOPIDOGREL 75 MG TABLET PO SCH (09:07)
[2022-06-17] MEDS: carvediloL 3.125 MG TABLET PO SCH ×2 (09:07→17:18)
[2022-06-17] MEDS ORDERED: LORazepam 1 MG TABLET PO ONE (13:29)
[2022-06-17] MEDS ORDERED: LEVALBUTEROL 1.25 MG/3 ML NEB RESP TX PRN (13:38)
[2022-06-17] MEDS: PREGABALIN 50 MG CAPSULE PO SCH (21:59)
[2022-06-17] MEDS: ROSUVASTATIN 20 MG TABLET PO SCH (21:59)
[2022-06-18 06:15] LABS: Basophils # 0.1 10*3/uL (0.0-0.2); Basophils % 0.7 % (0.0-0.8); Eosinophils # 0.5 10*3/uL (0.0-0.87); Hematocrit 47.2 VOL% (42.0-52.0); Hemoglobin 14.7 GM/DL (14.0-18.0); Immature Granulocytes % 0.2 %; Immature Granulocytes Absolute 0.02 #; Lymphocytes # 3.6 10*3/uL (1.4-4.0); Lymphocytes % 37.3 % (21.2-54.2); Mean Corpuscular HGB Conc 31.1 GM/DL (32-36); Mean Corpuscular Volume 97.7 FL (87-102); Mean Platelet Volume 11.6 FL (9.6-12.0); Monocytes # 0.9 10*3/uL (0.11-0.8); Monocytes % 9.2 % (1.7-12.7); Neutrophils % 47.6 % (38.7-73.9); Platelet Count 202 T/CUMM (130-400); Red Blood Count 4.83 MC/CUMM (3.8-5.5); Red Cell Distribution Width 12.7 % (9.3-17.3); White Blood Count 9.6 T/CUMM (4-12)
[2022-06-18 06:33] LABS: Calcium 8.4 MG/DL (8.5-10.1); Osmolality,Calculated 287.8 MOS/KG (273-304); Potassium 3.7 MMOL/L (3.5-5.1)
[2022-06-18] MEDS: LOSARTAN 25 MG TABLET PO SCH (09:16)
[2022-06-18] MEDS: PREGABALIN 50 MG CAPSULE PO SCH (09:16)
[2022-06-18] MEDS: ASCORBIC ACID 500 MG TABLET PO SCH (09:16)
[2022-06-18] MEDS: PANTOPRAZOLE 40 MG TABLET PO SCH (09:16)
[2022-06-18] MEDS: CLOPIDOGREL 75 MG TABLET PO SCH (09:17)
[2022-06-18] MEDS: carvediloL 3.125 MG TABLET PO SCH (09:17)
[2022-06-18] MEDS ORDERED: IPRATROPIUM 500 MCG/2.5 ML NEB RESP TX ONE (10:48)
[2022-06-18 13:26] VITALS: BP 158/83
[2022-06-22] MEDS ORDERED: FAMOTIDINE 20 MG TABLET PO ONE (06:30)
== END 2022-06-18 14:07 | disposition home or self-care (01) ==
LOC: N.ED 09:29 → N.EDINP 09:29 → SUATTDRO 11:23 → N.EDINP 13:22 → N.TELES 13:28
PROVIDERS: ADMIT Family Medicine; ATTEND Internal Medicine

== ENCOUNTER 2022-06-22 06:14 | Inpatient (IN) ==
[~2022-06-22 06:14] MED LIST: FAMOTIDINE 20 MG TABLET PO ONE
[2022-06-22] MEDS ORDERED: HEPARIN/NACL 0.9% 2 UNITS/ML 1,000 UNIT/500 ML BAG IV ONE (07:40)
[2022-06-22] MEDS ORDERED: NITROGLYCERIN DRIP 50 MG/250 ML BOTTLE IV ONE (07:41)
[2022-06-22] MEDS ORDERED: PHENYLEPHRINE DRIP 20 MG/250 ML PREMIX IV ONE (07:41)
[2022-06-22] MEDS ORDERED: fentaNYL 100 MCG/2 ML VIAL ONE ×2 (07:56→09:47)
[2022-06-22] MEDS ORDERED: LACTATED RINGERS 1,000 ML IV SCH (08:00)
[2022-06-22] MEDS ORDERED: LIDOCAINE 1% 5 ML VIAL ONE (09:42)
[2022-06-22] MEDS ORDERED: TISSUE ADHESIVE 1 EACH APPLICATOR TOP ONE (09:42)
[2022-06-22] MEDS ORDERED: HEPARIN 5,000 UNIT/1 ML VIAL ONE (09:42)
[2022-06-22] MEDS ORDERED: ONDANSETRON 4 MG/2 ML VIAL ONE (10:22)
[2022-06-22] MEDS ORDERED: LIDOCAINE 2% 5 ML VIAL ONE ×2 (10:22→11:25)
[2022-06-22] MEDS ORDERED: SEVOFLURANE 1 UNIT/15 MINUTE INH ONE (10:22)
[2022-06-22] MEDS ORDERED: ETOMIDATE 40 MG/20 ML VIAL IV ONE (10:22)
[2022-06-22] MEDS ORDERED: PHENYLEPHRINE 1 MG/10 ML SYRINGE IV ONE (10:22)
[2022-06-22] MEDS ORDERED: ACETAMINOPHEN INJ 1,000 MG/100 ML VIAL IV ONE ×2 (10:22→10:39)
[2022-06-22] MEDS ORDERED: propofoL 200 MG/20 ML VIAL IV ONE (10:22)
[2022-06-22] MEDS ORDERED: GLYCOPYRROLATE 0.4 MG/2 ML VIAL ONE (10:22)
[2022-06-22] MEDS ORDERED: LACTATED RINGERS 1,000 ML IV ONE (10:55)
[2022-06-22] MEDS ORDERED: SUGAMMADEX 200 MG/2 ML VIAL IV ONE (11:11)
[2022-06-22] MEDS ORDERED: PROTAMINE SULFATE 50 MG/5 ML VIAL IV ONE (11:25)
[2022-06-22] MEDS ORDERED: oxyCODONE/ACETAMINOPHEN 5-325 MG TABLET PO PRN ×2 (11:30)
[2022-06-22] MEDS ORDERED: HYDROmorphone 1 MG/1 ML SYRINGE IV PRN (11:30)
[2022-06-22] MEDS ORDERED: NITROPRUSSIDE 100 MG in DEXTROSE 5% 250 ML IV PRN (11:30)
[2022-06-22] MEDS ORDERED: NALOXONE 0.4 MG/ML VIAL IV PRN (11:30)
[2022-06-22] MEDS ORDERED: PROMETHAZINE 25 MG/1 ML VIAL IM PRN (11:30)
[2022-06-22] MEDS ORDERED: CYCLOBENZAPRINE 10 MG TABLET PO PRN (11:32)
[2022-06-22] MEDS ORDERED: MECLIZINE 25 MG TABLET PO PRN (11:32)
[2022-06-22] MEDS ORDERED: BUDESONIDE/FORMOTEROL 160-4.5 INHALER 6 GM INH PRN (11:32)
[2022-06-22] MEDS ORDERED: NITROGLYCERIN SL 0.4 MG TABLET SL PRN (11:32)
[2022-06-22] MEDS ORDERED: IPRATROPIUM 500 MCG/2.5 ML NEB RESP TX PRN (11:32)
[2022-06-22] MEDS: PHENYLEPHRINE DRIP 40 MG/250 ML PREMIX IV PRN ×3 (12:43→23:42)
[2022-06-22] MEDS: LACTATED RINGERS 1,000 ML IV SCH (15:00)
[2022-06-22] MEDS: PANTOPRAZOLE 40 MG TABLET PO SCH (17:03)
[2022-06-22] MEDS: PREGABALIN 50 MG CAPSULE PO SCH (20:23)
[2022-06-22] MEDS: ROSUVASTATIN 20 MG TABLET PO SCH (20:23)
[2022-06-22] MEDS: ASPIRIN EC 81 MG TABLET PO SCH (20:23)
[2022-06-22] MEDS: DOCUSATE SODIUM 100 MG CAPSULE PO SCH (20:24)
[2022-06-22] MEDS: HYDROmorphone 1 MG/1 ML SYRINGE IV PRN (20:24)
[2022-06-22] MEDS: LATANOPROST 0.005% OPH SOLN 2.5 ML BOTTLE BOTH EYES SCH (21:26)
[2022-06-22] MEDS: DORZOLAMIDE 2% OPH SOLN 10 ML BOTTLE BOTH EYES SCH (21:26)
[2022-06-23] MEDS: LACTATED RINGERS 1,000 ML IV SCH (01:30)
[2022-06-23] MEDS: HYDROmorphone 1 MG/1 ML SYRINGE IV PRN (01:38)
[2022-06-23] MEDS: ONDANSETRON 4 MG/2 ML VIAL IV PRN ×3 (01:43→23:20)
[2022-06-23] MEDS ORDERED: CLOPIDOGREL 75 MG TABLET PO SCH (09:00)
[2022-06-23] MEDS ORDERED: NON-FORMULARY MEDICATION (Potassium Citrate 99 mg Capsule) PO SCH (09:00)
[2022-06-23] MEDS ORDERED: NON-FORMULARY MEDICATION (Saw Palmetto 450 mg Capsule) PO SCH (09:00)
[2022-06-23] MEDS ORDERED: ASPIRIN EC 81 MG TABLET PO SCH (09:00)
[2022-06-23] MEDS ORDERED: BIMATOPROST 0.01% OPH SOLN 2.5 ML BOTTLE BOTH EYES SCH (09:00)
[2022-06-23] MEDS ORDERED: BRIMONIDINE 0.1% OPH SOLN 5 ML BOTTLE BOTH EYES SCH (09:00)
[2022-06-23] MEDS: CHOLECALCIFEROL 5,000 UNIT TABLET PO SCH (09:18)
[2022-06-23] MEDS: ASPIRIN EC 81 MG TABLET PO SCH ×2 (09:18→20:51)
[2022-06-23] MEDS: DOCUSATE SODIUM 100 MG CAPSULE PO SCH ×2 (09:18→20:51)
[2022-06-23] MEDS: MAGNESIUM OXIDE 400 MG TABLET PO SCH (09:18)
[2022-06-23] MEDS: PREGABALIN 50 MG CAPSULE PO SCH ×2 (09:18→20:51)
[2022-06-23] MEDS: DORZOLAMIDE 2% OPH SOLN 10 ML BOTTLE BOTH EYES SCH ×2 (09:19→20:53)
[2022-06-23] MEDS: CLOPIDOGREL 75 MG TABLET PO SCH (09:19)
[2022-06-23] MEDS ORDERED: SALIVA SUBSTITUTE SPRAY 60 ML CAN SWISH/SWAL PRN (11:00)
[2022-06-23] MEDS: PANTOPRAZOLE 40 MG TABLET PO SCH (16:59)
[2022-06-23] MEDS: ROSUVASTATIN 20 MG TABLET PO SCH (20:50)
[2022-06-23] MEDS: LATANOPROST 0.005% OPH SOLN 2.5 ML BOTTLE BOTH EYES SCH (20:54)
[2022-06-24] MEDS: PREGABALIN 50 MG CAPSULE PO SCH (08:36)
[2022-06-24] MEDS: CLOPIDOGREL 75 MG TABLET PO SCH (08:36)
[2022-06-24] MEDS: ASPIRIN EC 81 MG TABLET PO SCH (08:36)
[2022-06-24] MEDS: DOCUSATE SODIUM 100 MG CAPSULE PO SCH (08:36)
[2022-06-24] MEDS: carvediloL 3.125 MG TABLET PO ONE ×2 (08:36→08:40)
[2022-06-24] MEDS: MAGNESIUM OXIDE 400 MG TABLET PO SCH (08:36)
[2022-06-24] MEDS: carvediloL 3.125 MG TABLET PO SCH ×3 (08:37→08:40)
[2022-06-24] MEDS: DORZOLAMIDE 2% OPH SOLN 10 ML BOTTLE BOTH EYES SCH (08:41)
[2022-06-24] MEDS: CHOLECALCIFEROL 5,000 UNIT TABLET PO SCH (08:42)
[2022-06-24 10:23] VITALS: BP 136/92
== END 2022-06-24 10:12 | disposition home or self-care (01) | DRG 38 ==
LOC: N.SDSINP 06:14 → N.CC 13:16 → N.ICU 18:15
PROVIDERS: ADMIT Surgery; ATTEND Surgery